=== PATIENT | male | born 1990 | race Caucasian/White ===

== ENCOUNTER → 2018-06-19 17:23 | Outpatient (CLI) | payer OTHER, SELFPAY ==
--- NOTE | 2018-06-19 17:29 | DI.MRI.S_ITS ---
PROCEDURE: MR KNEE RT WO CON INDICATIONS: acute on chronic right knee pain, TECHNIQUE: Noncontrast sagittal PD fast spin echo and T2 fast spin echo with fat saturation, sagittal 3-D FLASH with fat saturation; coronal T1 spin echo and PD fast spin echo with fat saturation, and axial PD fast spin echo with fat saturation through the knee. COMPARISON: None. FINDINGS: Image quality: Excellent. Menisci: The medial and lateral menisci demonstrate normal morphology and internal signal. The meniscal root ligaments appear intact. Cruciate ligaments: The anterior and posterior cruciate ligaments appear intact. Medial structures: The medial collateral ligament appears intact. The posterior oblique ligament, semimembranosus tendon insertions, oblique popliteal ligament, and meniscocapsular junction appear intact. Visualized portions of the pes anserinus tendons appear normal. No abnormal bursal fluid. Lateral structures: The lateral collateral ligament, long and short heads of the biceps femoris tendon appear intact. The popliteus tendon appears normal; the popliteofibular ligament appears intact. The posterosuperior and anteroinferior popliteomeniscal fascicles appear intact. The arcuate and fabellofibular ligaments appear intact, on either side of the lateral inferior geniculate artery. Iliotibial band appears normal. Anterior structures: Quadriceps tendon appears intact. Mild diffuse patellar tendinopathy. There is mild amount of fluid seen within the tibia patellar bursae raises the possibility of bursitis. Prepatellar and superficial infrapatellar subcutaneous edema, mild. There is edema in the superolateral Hoffa's fat pad. There is patella charmaine appearance. Bones and cartilage: No focal marrow contusion or discrete low signal fracture line. Within the medial compartment, articular cartilage appears grossly preserved. Within the lateral compartment, articular cartilage appears grossly preserved. Within the patellofemoral compartment, there is mild surface fraying of the patellar and femoral trochlear cartilage diffusely with superimposed full thickness 3 mm cartilage defect at the median patellar ridge image 7 series 6. Subchondral sclerosis is present in the patella. Joint space: No pathologic joint effusion. No Squires's cyst identified. No evidence of intra-articular loose body. There is loculated presumed ganglion cyst at the proximal tibia-fibula articulation, image 27 series 11 are measures 1.4 x 0.6 cm coronally. IMPRESSION: Mild patellar tendinopathy. Patella charmaine appearance. 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 Deep infrapatellar bursitis. Superolateral edema within the infrapatellar fat pad a finding that has been associated with patellofemoral tracking abnormality. Recommend clinical correlation. Small proximal tibiofibular ganglion cyst. Dictated by: Cristobal Trinh M.D. on 06/20/2018 at 9:12 Approved by: Cristobal Trinh M.D. on 06/20/2018 at 9:18
== END ==
PROVIDERS: Family Provider Family Medicine; PCP Family Medicine; Visit Provider Nurse Practitioner
DX: M25.561 Pain in right knee (principal); M22.41 Chondromalacia patellae, right knee; M71.561 Other bursitis, not elsewhere classified, right knee; M67.461 Ganglion, right knee; M25.461 Effusion, right knee
CPT/HCPCS: 73721

== ENCOUNTER 2018-10-29 19:47 | Emergency (ER) | payer OTHER, SELFPAY ==
[2018-10-29 19:55] VITALS: BP 136/89; PULSE 66; RESP 18; TEMP 36.4; O2SAT 100
--- NOTE | 2018-10-29 20:04 | ED.HA ---
HPI - Headache General Chief Complaint: Headache Stated Complaint: HEADACHE FOR 7 HOURS Time Seen by Provider: 10/29/18 20:03 Source: patient Mode of arrival: ambulatory Limitations: no limitations History of Present Illness HPI Narrative: Patient is a 28-year-old male who stated that approximately noon on the day of evaluation in the emergency department he started to have a headache. Describes it as a frontal headache in a sharp pain. He has had headaches in the past but they have not been this bad. Was not of sudden onset but was gradually as the day went on. No fevers. No neck pain. Has not tried anything for symptoms. He states that he has had a constant headache since approximately noon today but has periods where his pain worsened. Just prior to arrival patient states that he was very nauseous. No vomiting. He did have some blood work drawn today for work. Related Data Home Medications Medication Instructions Recorded Confirmed No Known Home Medications 06/16/18 06/16/18 Allergies Allergy/AdvReac Type Severity Reaction Status Date / Time No Known Drug Allergies Allergy Verified 10/29/18 19:58 Review of Systems Constitutional Denies fever(s) and Reports headache(s) ENT Ears, Nose, Mouth, and Throat: Reports headache(s) Cardiovascular Denies chest pain and Denies dyspnea Respiratory Denies dyspnea Gastrointestinal Gastrointestinal: Denies abdominal pain, Reports nausea and Denies vomiting Musculoskeletal Denies myalgias and Denies arthralgias Integumentary/Breasts Denies lesions and Denies rash Neurologic Denies behavioral changes and Reports headache(s) Psychiatric Denies behavioral changes Hematologic/Lymphatic Denies easy bleeding and Denies easy bruising [facility] Medical History Chronic back pain (Chronic) Headache (Chronic) Knee pain (Chronic) Vision disorder (Chronic) Social History marital status: number of children: 0 household members: spouse lives independently: Yes occupational status: employed Smoking Status: Never smoker alcohol intake: current substance use type: does not use Exam Initial Vital Signs Initial Vital Signs: Vital Signs Temperature 97.6 F 10/29/18 19:55 Pulse Rate 66 10/29/18 19:55 Respiratory Rate 18 10/29/18 19:55 Blood Pressure 136/89 10/29/18 19:55 Pulse Oximetry 100 10/29/18 19:55 Const General: cooperative, comfortable, well developed, well groomed and No acute distress Orientation: alert, awake and oriented x3 HENMT Head: normal to inspection and normocephalic Mouth: oral mucosae normal Eyes Pupils: PERRL EOM: EOM intact bilaterally Resp Effort & Inspection: normal respiratory effort Auscultation: clear to auscultation bilaterally Cardio Rate: regular rate Rhythm: regular rhythm Skin Lesions: no lesions Rashes: no rashes Neuro General: alert, awake and oriented x3 Cranial Nerves: CN's II-XI intact bilaterally Cognition: normal cognition Speech: speech normal Gait: normal gait Motor: muscle tone normal throughout Sensory Exam: no sensory deficits noted Extrem General: normal to inspection and capillary refill normal Psych Appearance: grossly normal and well kempt Scores GCS [place] coma scale eye opening: Spontaneous Betzaida coma scale verbal response: Orientated Betzaida coma scale motor response: Obey commands Betzaida coma scale total score: 15 Course Orders Ordered: Discontinued Medications Acetaminophen (Tylenol) 975 mg PO NOW ONE Stop: 10/29/18 20:19 Last Admin: 10/29/18 21:12 Dose: 975 mg Vital Signs - 8 hr 10/29/18 19:55 10/29/18 21:15 Temperature 97.6 F Pulse Rate 66 69 Respiratory Rate 18 14 Blood Pressure 136/89 129/80 Pulse Oximetry 100 99 MDM - Headache MDM Narrative Medical decision making narrative: By the time I evaluated the patient in the emergency department reported that his headache had significantly improved. He was given Tylenol here in the ER and was able to hold this down without any nausea or vomiting. He states that his headache continued to improve and during the time here in the ER did not have any spikes in the pain. He has no fevers. No neck pain. No trauma. Low suspicion for meningitis. His headache was a gradual onset. Does not appear to be an environmental trigger. He has had headaches in the past. I did discuss with him the possibility of obtaining a CT scan of the lumbar puncture here in the emergency department and what we would be checking for with these studies. After this discussion the patient opted not to have any further studies done since he was feeling much better. He was given return precautions and follow-up instructions. He expressed understanding and agreement with plan. Discharge Plan Departure Patient Disposition: Home Clinical Impression: Headache Qualifiers: Headache type: unspecified Headache chronicity pattern: unspecified pattern Intractability: not intractable Qualified Code(s): R51 - Headache Discharge Date/Time: 10/29/18 21:15 Interventions: ED Discharge Assessment Last Done: 10/29/18 21:15 Instructions: DI for Headache Activity Restrictions/Additional Instructions: You can take Tylenol and/or ibuprofen for any headaches. Contact your primary provider for a follow-up. Return to the emergency department for any new or worsening symptoms Prescriptions: No Action No Known Home Medications RF: 0 Referrals: Celena Puente DO [Primary Care Provider] -
[2018-10-29] MEDS: ACETAMINOPHEN 325 MG TABLET 975 MG PO (21:12)
[2018-10-29 21:15] VITALS: BP 129/80; PULSE 69; RESP 14; O2SAT 99
== END 2018-10-29 21:15 | disposition home or self-care (01) ==
PROVIDERS: Emergency Provider Emergency Medicine; Family Provider Family Medicine; PCP Family Medicine
DX: R51 Headache (principal)
CPT/HCPCS: 99282; 99283

== ENCOUNTER → 2019-12-24 10:38 | Outpatient (CLI) | payer OTHER, SELFPAY ==
[2019-12-24 11:06] LABS: Bacteria Urine None Seen; RBC Urine None Seen (0-5/HPF); WBC Urine None Seen (0-5/HPF)
[2019-12-24 12:06] LABS: Add Manual Diff / Slide Review NO; Basophils Absolute Auto 100 /uL (0-100); Basophils Percent Auto 1.1 % (0-2); Eosinophils Absolute Auto 100 /uL (0-450); Eosinophils Percent Auto 1.9 % (2-4); Hematocrit 45.5 % (41-53); Hemoglobin 15.8 g/dL (13.5-17.5); Lymphocytes Absolute Auto 2200 /uL (1100-4500); Lymphocytes Percent Auto 37.8 % (25-40); Mean Corpuscular HGB Conc 34.7 % (30-36); Mean Corpuscular Hemoglobin 32.6 PG (26-34); Monocytes Absolute Auto 500 /uL (0-900); Monocytes Percent Auto 8.5 % (3-14); Neutrophils Absolute Auto 3000 /uL (1500-7000); Neutrophils Percent Auto 50.7 % (50-75); Platelet Count 206 X10^3/uL (150-400); Red Blood Cell Count 4.85 X10^6/uL (4.5-5.9); Red Cell Distribution Width 13.1 % (11.6-14.8); White Blood Cell Count 5.9 X10^3/uL (4.5-11.0)
[2019-12-24 12:16] LABS: Appearance Urine UA CLEAR; Bilirubin Urine UA NEGATIVE (NEGATIVE); Color Urine UA YELLOW; Glucose Urine UA NEGATIVE (Negative); Ketones Urine UA NEGATIVE (NEGATIVE); Leukocyte Esterase Urine UA NEGATIVE (NEGATIVE); Nitrite Urine UA NEGATIVE (Negative); Occult Blood Urine UA NEGATIVE (Negative); Protein Urine UA NEGATIVE (Negative); Urobilinogen Urine UA 0.2 E.U./dL (0.2); pH Urine UA 5.5 (4.5-8.0)
[2019-12-24 12:18] LABS: Alanine Aminotransferase 26 IU/L (<50); Albumin 4.6 g/dL (3.5-5.0); Albumin Globulin Ratio 1.5 (1.0-2.8); Alkaline Phosphatase 55 U/L (38-126); Aspartate Aminotransferase 33 IU/L (17-59); Bilirubin Total 0.5 mg/dL (0.2-1.3); Blood Urea Nitrogen 19 mg/dL (9-20); Calcium 9.5 mg/dL (8.4-10.2); Carbon Dioxide 30 mmol/L (22-32); Chloride 103 mmol/L (98-107); Creatine Kinase 153 U/L (55-170); Estimated Glomerular Filt Rate > 60.0 mL/min (>60); Glucose 90 mg/dL (70-100); HEMOLYSIS 16 (0-50); Potassium 4.2 mmol/L (3.4-5.1); Sodium 139 mmol/L (137-145); Total Protein 7.6 g/dL (6.3-8.2)
[2019-12-24 12:50] LABS: Culture Indicated Urine Cult Not Indicated
[2019-12-24 13:36] LABS: TSH w/ Reflex to FT4 2.31 uIU/mL (0.47-4.68)
== END ==
PROVIDERS: Family Provider Family Medicine; PCP Family Medicine; Referring Provider Family Medicine; Visit Provider Family Medicine
DX: R53.83 Other fatigue (principal); R31.9 Hematuria, unspecified; R81 Glycosuria
CPT/HCPCS: 36415; 80053; 81001; 82550; 84443; 85025

== ENCOUNTER → 2021-06-30 16:37 | Outpatient (CLI) | payer OTHER, SELFPAY ==
[2021-06-30 17:33] LABS: Semen Sperm Prescence Post-Vas Absent (ABSENT)
== END ==
PROVIDERS: Family Provider Family Medicine; PCP Family Medicine; Referring Provider Family Medicine; Visit Provider Family Medicine
DX: Z30.09 Encounter for other general counseling and advice on contraception (principal)
CPT/HCPCS: 89321

== ENCOUNTER → 2023-09-23 07:38 | Outpatient (CLI) | payer OTHER, SELFPAY ==
--- NOTE | 2023-09-23 07:40 | DI.NM.S_ITS ---
PROCEDURE: NM EXERCISE TREADMILL NON NUC COMPARISON: None. INDICATIONS: Abnormal electrocardiogram [ECG] [EKG] FINDINGS: The patient exercised for 14 minutes reaching 95% of maximum predicted heart rate. Appropriate BP response to exercise.14.5 METs, Otto -2% No diagnostic ST changes and no angina during the study. Rare PVCs present. IMPRESSION: Low risk, normal treadmill ECG only stress test with average exercise tolerance. Dictated by: Hellen Hoff MD on 09/24/2023 at 17:36 Approved by: Hellen Hoff MD on 09/24/2023 at 17:38
== END ==
PROVIDERS: Family Provider Family Medicine; PCP Student in an Organized Health Care Education/Training Program; Referring Provider Student in an Organized Health Care Education/Training Program; Visit Provider Student in an Organized Health Care Education/Training Program
DX: R94.31 Abnormal electrocardiogram [ECG] [EKG] (principal)
CPT/HCPCS: 93017

== ENCOUNTER → 2023-10-08 10:58 | Outpatient (CLI) | payer OTHER, SELFPAY ==
[2023-10-08 11:42] LABS: Add Manual Diff / Slide Review NO; Basophils Absolute Auto 0 /uL (0-100); Eosinophils Absolute Auto 100 /uL (0-450); Eosinophils Percent Auto 2.3 % (2-4); Hematocrit 43.7 % (41-53); Hemoglobin 15.3 g/dL (13.5-17.5); Lymphocytes Absolute Auto 2300 /uL (1100-4500); Lymphocytes Percent Auto 46.7 % (25-40); Mean Corpuscular HGB Conc 35.1 % (30-36); Mean Corpuscular Hemoglobin 33.2 PG (26-34); Mean Corpuscular Volume 94.7 fL (80-100); Monocytes Absolute Auto 400 /uL (0-900); Monocytes Percent Auto 8.9 % (3-14); Neutrophils Absolute Auto 2000 /uL (1500-7000); Neutrophils Percent Auto 41.1 % (50-75); Platelet Count 185 X10^3/uL (150-400); Red Blood Cell Count 4.61 X10^6/uL (4.5-5.9); Red Cell Distribution Width 13.7 % (11.6-14.8); White Blood Cell Count 4.9 X10^3/uL (4.5-11.0)
[2023-10-08 12:06] LABS: Hemoglobin A1C% w Est Avg Glu 5.6 % (4.0-6.0)
[2023-10-08 12:23] LABS: Alanine Aminotransferase 19 IU/L (<50); Alkaline Phosphatase 55 U/L (38-126); Aspartate Aminotransferase 25 IU/L (17-59); BUN Creatinine Ratio 18.1 (6-22); Bilirubin Total 0.7 mg/dL (0.2-1.3); Blood Urea Nitrogen 17 mg/dL (9-20); Carbon Dioxide 29 mmol/L (22-32); Estimated Glomerular Filt Rate > 60 mL/min (>60); Glucose 98 mg/dL (70-100); HEMOLYSIS < 15 (0-50)
[2023-10-08 12:25] LABS: Albumin 4.4 g/dL (3.5-5.0); Calcium 9.1 mg/dL (8.4-10.2); Chloride 104 mmol/L (98-107); Cholesterol 182 mg/dL (140-199); Globulin 2.2 g/dL (1.7-4.1); HDL Cholesterol 58 mg/dL (40-60); LDL Cholesterol Calculated 107 mg/dL (<100); Magnesium 2.1 mg/dL (1.6-2.3); Potassium 4.4 mmol/L (3.4-5.1); Sodium 139 mmol/L (137-145); Total Protein 6.6 g/dL (6.3-8.2); Triglycerides 87 mg/dL (35-150)
[2023-10-08 12:35] LABS: Free T4, Direct Thyroxine 0.91 ng/dL (0.78-2.19)
[2023-10-08 12:49] LABS: Thyroid Stimulating Hormone 2.37 uIU/mL (0.47-4.68)
== END ==
LOC: LAB 11:01
PROVIDERS: Family Provider Family Medicine; PCP Student in an Organized Health Care Education/Training Program; Referring Provider Internal Medicine Cardiovascular Disease; Visit Provider Internal Medicine Cardiovascular Disease
DX: R00.2 Palpitations (principal); Z13.1 Encounter for screening for diabetes mellitus; Z13.220 Encounter for screening for lipoid disorders; R94.31 Abnormal electrocardiogram [ECG] [EKG]
CPT/HCPCS: 36415; 80053; 80061; 83036; 83735; 84439; 84443; 85025

== ENCOUNTER → 2023-11-21 13:02 | Outpatient (CLI) | payer BC, SELFPAY ==
--- NOTE | 2023-11-21 | DI.ECHO.S_ITS ---
[facility] : : [address] : [place] [address] : : [id number] : : Phone: [phone] Echocardiogram Report + + :Name: EVELIA WALSH Study Date: 11/21/2023 Height: 70 in : :Hospital ReadingLocation: Weight: 175 lb : : Gender: Male BSA: 2.0 m2 : :: 1990 Age: 33 yrs BP: 142/100 mmHg: :Reason For Study: CHEST PAIN : :Ordering Physician: IVANA, : :GINNY King Performed By: Lacey Carrillo : :Referring: GINNY REARDON : + + Interpretation Summary The ejection fraction is estimated to be 60-65%. The right ventricle is normal in size and function. There is mild mitral regurgitation. Pulmonary artery pressures cannot be estimated because of the lack of a measurable TR jet velocity but the IVC suggests a CVP of around 3 mmHg. Procedure: A two-dimensional transthoracic echocardiogram with color flow and Doppler was performed. The study quality was technically adequate. There is no prior echocardiogram noted for this patient. The patient was in sinus rhythm with heart rates between 61-69 bpm during the exam. Left Ventricle: The left ventricle is normal in size and wall thickness. The ejection fraction is estimated to be 60-65%. Diastolic parameters suggest probable normal left ventricular diastolic function and normal filling pressures. Right Ventricle: The right ventricle is normal in size and function. Atria: The left atrial size is normal. Right atrial size is normal. There is no Doppler evidence for an interatrial shunt. Mitral Valve: There is borderline mitral valve prolapse. There is mild mitral regurgitation. Aortic Valve: The aortic valve is trileaflet. The aortic valve opens well. There is no aortic valve stenosis. There is trace aortic regurgitation. Tricuspid Valve: The tricuspid valve is normal in structure and function. There is trace tricuspid regurgitation. Pulmonary artery pressures cannot be estimated because of the lack of a measurable TR jet velocity but the IVC suggests a CVP of around 3 mmHg. Pulmonic Valve: The pulmonic valve leaflets are thin and pliable; valve motion is normal. There is trace pulmonic regurgitation. Great Vessels: The aortic root is normal size. The dimensions of the ascending aorta are normal. The IVC is of normal diameter and collapses greater than 50% with a sniff. This suggests a low right atrial pressure of 3 mm Hg. Pericardium/ Pleura There is no pericardial effusion. There is no pleural effusion. MMode/2D Measurements & Calculations LVIDd: 4.9 cm LVOT diam: 2.0 cm LVIDs: 3.0 cm Ao root diam: 2.8 cm FS: 38.2 % asc Aorta Diam: 3.1 cm IVSd: 0.84 cm Ao Arch Diam (Prox Trans): 2.4 cm LVPWd: 0.99 cm LV titus. diameter/BSA (cm/m^2): 2.5 LV sys. diameter/BSA (cm/m^2): 1.5 LA A2 area: 19.2 cm2 RA long axis: 5.1 cm LA A4 area: 19.1 cm2 RA area: 17.1 cm2 LA length (vol): 5.2 cm RA vol: 48.9 ml LA vol: 59.8 ml RA : 24.8 ml/m2 LA vol index: 30.3 ml/m2 IVC diam: 1.3 cm RVD1 (basal): 3.6 cm TAPSE: 1.7 cm Doppler Measurements & Calculations Ao V2 max: 113.1 cm/sec LVOT Max Gui: 99.8 cm/sec Ao V2 mean: 77.8 cm/sec LV V1 max P.0 mmHg Ao max P.1 mmHg LV V1 VTI: 21.9 cm Ao mean P.7 mmHg JOSÉ(I,D): 2.8 cm2 Ao V2 VTI: 24.0 cm JOSÉ(V,D): 2.7 cm2 sev ratio: 0.91 JOSÉ indexed to BSA (cm^2/m^2): 1.4 MV E max gui: 66.0 cm/sec PA V2 max: 111.9 cm/sec MV A max gui: 49.6 cm/sec PA V2 mean: 80.3 cm/sec MV E/A: 1.3 PA mean P.8 mmHg Med Peak E' Gui: 10.7 cm/sec PA pr(Accel): 20.8 mmHg E/E' med: 6.2 Lat Peak E' Gui: 14.2 cm/sec E/E' lat: 4.6 E/e' average: 5.4 MV dec time: 0.20 sec SV(LVOT): 67.3 ml Reading Physician:01:08 PM
== END ==
LOC: ECHO 13:03
PROVIDERS: Family Provider Family Medicine; PCP Student in an Organized Health Care Education/Training Program; Referring Provider Internal Medicine Cardiovascular Disease; Visit Provider Internal Medicine Cardiovascular Disease
DX: I34.0 Nonrheumatic mitral (valve) insufficiency (principal); R07.9 Chest pain, unspecified
CPT/HCPCS: 93306

== ENCOUNTER → 2024-01-09 12:24 | Outpatient (CLI) | payer BC, SELFPAY ==
--- NOTE | 2024-01-09 14:00 | DI.MRI.S_ITS ---
PROCEDURE: MR KNEE RT WO CON INDICATIONS: JOINT DISORDERS RT KNEE TECHNIQUE: Noncontrast sagittal PD fast spin echo and T2 fast spin echo with fat saturation, sagittal 3-D FLASH with fat saturation; coronal T1 spin echo and PD fast spin echo with fat saturation, and axial PD fast spin echo with fat saturation through the knee. COMPARISON: [facility], CR, XR KNEE ARTHRITIC SERIES RT, 05/21/2023, 10:22. [facility], MR, MR KNEE RT WO CON, 06/19/2018, 17:37. FINDINGS: Image quality: Excellent. Menisci: The medial and lateral menisci demonstrate normal morphology and internal signal. The meniscal root ligaments appear intact. Cruciate ligaments: The anterior and posterior cruciate ligaments appear intact. Medial structures: The medial collateral ligament appears intact. The posterior oblique ligament, semimembranosus tendon insertions, oblique popliteal ligament, and meniscocapsular junction appear intact. Visualized portions of the pes anserinus tendons appear normal. No abnormal bursal fluid. Lateral structures: The lateral collateral ligament, long and short heads of the biceps femoris tendon appear intact. The popliteus tendon appears normal; the popliteofibular ligament appears intact. The posterosuperior and anteroinferior popliteomeniscal fascicles appear intact. The arcuate and fabellofibular ligaments appear intact, on either side of the lateral inferior geniculate artery. Iliotibial band appears normal. Anterior structures: The quadriceps tendon is unremarkable. The patellar tendon is unremarkable. Marked superolateral Hoffa's fat pad edema, raising concern for patellar maltracking. Mild lateral tilt of the patella. The medial and the lateral patellofemoral ligaments are intact. Bones and cartilage: There is full-thickness high-signal chondral fissuring in the lateral patellar facet. There is a 7 mm T2 hyperintense lesion between the inferior pole of the patella and the trochlea (series 7, image 17), concerning for intra-articular body. Mild subchondral marrow edema of the inferior pole of the patella, favor reactive. The cartilage of the trochlea is unremarkable. The cartilage of the medial and the lateral compartments are grossly well maintained. No acute fracture. Mild subchondral cystic changes with marrow edema at the tibial eminence, reactive. Joint space: Trace knee effusion. Trace popliteal cyst. Popliteal vasculature is unremarkable. IMPRESSION: 1. Findings suggestive of patellar maltracking, unchanged. 2. Full-thickness high-signal chondral fissuring in the patella, unchanged. 3. 7 mm T2 hyperintense lesion between the inferior pole of the patella and the trochlea, concerning for intra-articular body, new from prior exam. Subjacent mild marrow edema of the inferior pole patella, favor reactive. Dictated by: Jennifer Johnson M.D. on 01/09/2024 at 14:08 Approved by: Jennifer Johnson M.D. on 01/09/2024 at 14:20
== END ==
PROVIDERS: Family Provider Family Medicine; PCP Student in an Organized Health Care Education/Training Program; Referring Provider Orthopaedic Surgery; Visit Provider Orthopaedic Surgery
DX: M25.861 Other specified joint disorders, right knee (principal)
CPT/HCPCS: 73721